=== PATIENT | male | born 1985 | race Caucasian/White ===

== ENCOUNTER 2017-10-06 16:43 | Inpatient (IN) | payer OTHER ==
[~2017-10-06] VITALS: Ht 172.7 cm; Wt 90.7 kg
[2017-10-06 19:26] LABS: microscopic required? NO
[2017-10-06 19:49] LABS: urine erythrocyte NEGATIVE (NEGATIVE)
[2017-10-06 19:54] LABS: BASOPHIL % 0.3 % (0-2); PLATELET COUNT 208 x10^3mcL (130-400); RED CELL DISTRIBUTION WIDTH 11.7 % (11.5-14.5)
[2017-10-06 19:56] LABS: CALCIUM 9.2 mg/dL (8.5-10.1); CARBON DIOXIDE 28.3 mmol/L (21-32); CHLORIDE SERUM 104 mmol/L (98-107); CREATININE SERUM 0.9 mg/dL (0.7-1.3); GFR1 > 60 mL/min; GLUCOSE SERUM 88 mg/dL (74-106); POTASSIUM SERUM 3.7 mmol/L (3.5-5.1); SODIUM SERUM 141 mmol/L (136-145)
[2017-10-06 20:02] LABS: ALBUMIN 3.9 g/dL (3.4-5.0); ALKALINE PHOSPHATASE 76 U/L (46-116); ALT/SGPT 18 U/L (16-63); AST/SGOT 20 U/L (15-37); BILIRUBIN TOTAL 0.58 mg/dL (0.20-1.00); CHOLESTEROL 154 mg/dL (<200); CHOLESTEROL/HDL RATIO 3.7; HDL CHOLESTEROL 42 mg/dL (40-60); LIPASE 148 IU/L (73-393); TOTAL PROTEIN, SERUM 7.5 g/dL (6.4-8.2); TRIGLYCERIDES 101 mg/dL (<150)
[2017-10-06 20:14] LABS: FREE T4 1.07 ng/dL (0.76-1.46); FREE THYROXINE INDEX 2.9 ug/dL (1.4-4.5); T4(THYROXINE) 8.2 ug/dL (4.7-13.3)
[2017-10-06 20:21] LABS: T3 TOTAL 1.02 ng/mL
[2017-10-06 21:37] LABS: MAGNESIUM 2.1 mg/dL (1.8-2.4); PHOSPHOROUS 4.2 mg/dL (2.5-4.9)
[2017-10-06 21:42] VITALS: BP 125/72
[2017-10-06 21:50] LABS: AMPHETAMINE QUAL UR NONE DETECTED (NEG <=1000)
[2017-10-07 05:58] VITALS: BP 106/69
[2017-10-07 06:44] LABS: BASOPHIL % 0.3 % (0-2); PLATELET COUNT 201 x10^3mcL (130-400); RED CELL DISTRIBUTION WIDTH 11.5 % (11.5-14.5)
[2017-10-07 06:59] LABS: CALCIUM 8.4 mg/dL (8.5-10.1); CARBON DIOXIDE 27.1 mmol/L (21-32); CHLORIDE SERUM 106 mmol/L (98-107); CREATININE SERUM 0.9 mg/dL (0.7-1.3); GFR1 > 60 mL/min; GLUCOSE SERUM 100 mg/dL (74-106); POTASSIUM SERUM 3.8 mmol/L (3.5-5.1); SODIUM SERUM 141 mmol/L (136-145)
[2017-10-07 07:15] VITALS: BP 113/64
[2017-10-07 10:22] VITALS: BP 101/67
[2017-10-07 13:52] VITALS: BP 94/58
[2017-10-07 16:58] VITALS: BP 118/76
[2017-10-07 20:58] VITALS: BP 106/64
[2017-10-08 05:43] VITALS: BP 112/68
[2017-10-08 06:15] LABS: BASOPHIL % 0.2 % (0-2); PLATELET COUNT 199 x10^3mcL (130-400)
[2017-10-08 06:39] LABS: CALCIUM 8.4 mg/dL (8.5-10.1); CARBON DIOXIDE 27.2 mmol/L (21-32); CHLORIDE SERUM 106 mmol/L (98-107); CREATININE SERUM 0.8 mg/dL (0.7-1.3); GFR1 > 60 mL/min; GLUCOSE SERUM 98 mg/dL (74-106); MAGNESIUM 2.2 mg/dL (1.8-2.4); PHOSPHOROUS 3.3 mg/dL (2.5-4.9); POTASSIUM SERUM 3.6 mmol/L (3.5-5.1); SODIUM SERUM 142 mmol/L (136-145)
[2017-10-08 10:36] VITALS: BP 110/71
[2017-10-08] MEDS ORDERED: FLA500 PO ×2 (10:54→17:34)
[2017-10-08] MEDS ORDERED: LEVAQUIN750 MG PO ×3 (10:54→17:34)
[2017-10-08] MEDS ORDERED: LAC PO ×2 (10:54→17:34)
[2017-10-08] MEDS ORDERED: APAP/HYDROCODON1 T13 PO (11:22)
[2017-10-08 14:07] VITALS: BP 155/83
[2017-10-08 14:55] VITALS: BP 155/83
== END 2017-10-08 19:54 | disposition home or self-care (01) | DRG 225 ==
LOC: ED 16:43 → DU 20:27
PROVIDERS: Family Medicine; Specialist; Surgery
PROC: 0DTJ4ZZ Resection of Appendix, Percutaneous Endoscopic Approach (ICD-10-PCS; principal; 2017-10-07 07:30)
DX: K35.80 Unspecified acute appendicitis (principal); E86.0 Dehydration; D64.9 Anemia, unspecified; K44.9 Diaphragmatic hernia without obstruction or gangrene; K80.20 Calculus of gallbladder without cholecystitis without obstruction; K57.30 Diverticulosis of large intestine without perforation or abscess without bleeding
CPT/HCPCS: 83880; 84439; 94150; J0694; J1170; J1885; J2175; J2405; J3010; J3490; J7030